=== PATIENT | male | born 1995 | race Caucasian/White ===

== ENCOUNTER 2018-01-13 06:13 | Day surgery (SDC) | payer OTHER ==
[2018-01-13] MEDS ORDERED: METOCLOPRAMIDE 10 MG INJ (08:03)
[2018-01-13] MEDS ORDERED: PROPOFOL 20 ML (08:03)
[2018-01-13] MEDS ORDERED: MIDAZOLAM 1 MG/ML 2 ML INJ (08:03)
[2018-01-13] MEDS ORDERED: ONDANSETRON 4 MG INJ (08:03)
[2018-01-13] MEDS ORDERED: FENTAnyl 50 MCG/ML VIAL (08:04)
[2018-01-13] MEDS ORDERED: CEFAZOLIN 1 GM INJ (08:07)
[2018-01-13] MEDS ORDERED: KETOROLAC 30 MG INJ (08:57)
[2018-01-13] MEDS ORDERED: MEPERIDINE 25 MG INJ IV (09:00)
[2018-01-13] MEDS ORDERED: DIPHENHYDRAMINE 50 MG INJ IV (09:00)
[2018-01-13] MEDS ORDERED: HYDROmorphONE 1 MG/5 ML IV SYRINGE IV ×3 (09:00)
[2018-01-13] MEDS ORDERED: OXYCODONE/ACETAMINOPHEN (5/325) TAB PO ×2 (09:00)
[2018-01-13] MEDS ORDERED: ONDANSETRON 4 MG INJ IV (09:00)
[2018-01-13] MEDS: POVIDONE IODINE 10% 28.4 GM OINT (09:16)
[2018-01-13] MEDS: BUPIVACAINE 0.5% (SDV) 30 ML INJ (09:16)
== END 2018-01-13 10:45 | disposition home or self-care (01) ==
LOC: SDS 06:13
DX: M20.11 Hallux valgus (acquired), right foot (principal); M21.611 Bunion of right foot
CPT/HCPCS: 28299; 88304; 88311

== ENCOUNTER 2019-03-08 22:50 | Emergency (ER) | payer OTHER | END 2019-03-09 01:01 | disposition home or self-care (01) | LOC: FTE 03-09 01:01 | DX: R05 Cough (principal) | CPT/HCPCS: 71046; 99283-25 ==